=== PATIENT | male | born 1970 | race Caucasian/White ===

== ENCOUNTER 2018-12-31 16:10 | Inpatient (IN) | payer OTHER ==
[~2018-12-31] VITALS: Ht 182.9 cm; Wt 106.3 kg
[~2018-12-31 16:10] MED LIST: HYDR1TAB94 PO; LISI20 PO; Novolog100 UNIT/2; Valtrex1000 MG PO
[2018-12-31] MEDS ORDERED: **INCOMPLETE MED REC (17:26)
[2018-12-31] MEDS ORDERED: CAVERJECT XX (17:37)
[2018-12-31] MEDS ORDERED: AMLO10 PO (17:38)
[2018-12-31] MEDS ORDERED: CELE200 PO (17:39)
[2018-12-31] MEDS ORDERED: ATOR40TA PO (17:39)
[2018-12-31] MEDS ORDERED: CLON.1 PO (17:40)
[2018-12-31] MEDS ORDERED: CHLO25B PO (17:40)
[2018-12-31] MEDS ORDERED: INSUGL100V SC (17:41)
[2018-12-31] MEDS ORDERED: METF500C PO (17:42)
[2018-12-31] MEDS ORDERED: Omeprazole20 M1 PO (17:42)
[2018-12-31] MEDS ORDERED: TRAZ50 PO (17:43)
[2018-12-31] MEDS ORDERED: GENTEAL TEARS 015 ML BOTHEYES (17:44)
--- NOTE | 2018-12-31 18:30 | NUR ---
PT ORIENTED TO ROOM; CALL LIGHT WITHIN REACH; BED LOW AND IN LOCKED POSITION. AMBULATORY WITH STEADY GAIT. ACCOMPANIED BY FAMILY.
--- NOTE | 2019-01-01 05:06 | NUR ---
01/01/19 0500 O2 APPLIED HIS O2 SATS WERE 84-88% ON ROOM AIR AFTER PAIN MED GIVEN. O2 AT 2LPM VIA N/C. O2 SATS = 93% ON O2. STATES HIS PAIN IS COMTROLLED AND DENIES ANY NAUSEA. SLIGHT FEVER THIS AM. NO EMESIS. SLEPT ON AND OFF THIS SHIFT.
[2019-01-01 05:20] LABS: BASOPHILS ABSOLUTE AUTO 0.05 K/mm3 (0.00-0.23); BASOPHILS PERCENT AUTO 0 % (0-2); EOSINOPHILS ABSOLUTE AUTO 0.06 K/mm3 (0.00-0.68); EOSINOPHILS PERCENT AUTO 0 % (0-6); Hemoglobin 12.4 g/dL (13.5-17.5); IMMATURE GRAN ABSOLUTE AUTO 0.12 K/mm3 (0.00-0.10); IMMATURE GRAN PERCENT AUTO 1 % (0-1); LYMPHOCYTES ABSOLUTE AUTO 1.55 K/mm3 (0.84-5.20); LYMPHOCYTES PERCENT AUTO 8 % (21-46); MONOCYTES ABSOLUTE AUTO 1.27 K/mm3 (0.16-1.47); MONOCYTES PERCENT AUTO 7 % (4-13); Mean Corpuscular HGB 29.2 pg (26.0-34.0); Mean Corpuscular HGB Conc 33.5 g/dL (31.5-36.5); Mean Corpuscular Volume 87 fL (80-100); Mean Platelet Volume 9.9 fL (9.1-12.4); NEUTROPHILS ABSOLUTE AUTO 16.34 K/mm3 (1.96-9.15); NEUTROPHILS PERCENT AUTO 84 % (41-73); Platelet Count 249 K/mm3 (150-400); RDW Coefficient Variation 12.9 % (11.7-14.2); RDW Standard Deviation 40.7 fL (35.1-46.3); Red Blood Cell Count 4.24 M/mm3 (4.30-5.90); White Blood Cell Count 19.39 K/mm3 (4.00-11.30)
[2019-01-01 06:01] LABS: Albumin, Blood 2.9 g/dL (3.4-5.0); Albumin/Globulin Ratio 0.7 (0.8-1.8); Bun/Creatinine Ratio 12.7 (12.0-20.0); Calcium, Blood 8.1 mg/dL (8.5-10.1); Creatinine, Blood 1.58 mg/dL (0.60-1.20); Globulin, Blood 4.4 g/dL (2.2-4.0); Magnesium, Blood 1.3 mg/dL (1.6-2.4); Potassium, Blood 2.9 mmol/L (3.5-5.5); Total Protein, Blood 7.3 g/dL (6.4-8.2)
--- NOTE | 2019-01-01 12:30 | NUR ---
History, Chart, Medications and Allergies reviewed before start of procedure. Lungs clear T/O to Auscultation. Patient confirms NPO status and agrees with scheduled surgery.
[2019-01-01 13:27] LABS: Bun/Creatinine Ratio 13.6 (12.0-20.0); Calcium, Blood 8.2 mg/dL (8.5-10.1); Creatinine, Blood 1.4 mg/dL (0.60-1.20); Potassium, Blood 3.2 mmol/L (3.5-5.5)
--- NOTE | 2019-01-01 16:02 | NUR ---
RECEIVED PT FROM OR AWAKE SLIGHTLY DROWSY C/O PAIN TO RUQ AND INCISION SITES. FAMILY AT BEDSIDE AND ATTENTIVE; VSS; TEMP 99.2. ANSWERING QUESTIONS APPROPRIATELY AND TAKING SIPS OF SPRITE. POST OP VITALS IN PROGRESS.
--- NOTE | 2019-01-01 18:33 | NUR ---
SHIFT SUMMARY S/P LAP/CLARISSA TODAY; 4 INCISION SITE WITH STERI STRIPS IN PLACE. MEDICATED FOR PAIN AND NAUSEA. FEBRILE ON RETURN FROM OR. TOLERATING CLEAR LIQUID DIET WELL-MAY ADVANCE. FAMILY AT BEDSIDE, PLEASANT. URINATING WELL.A AND OX3 STANDBY ASSIST DUE TO ANESTHESIA AND LINES. POSSIBLE DC TOMORROW.
--- NOTE | 2019-01-02 04:08 | NUR ---
SHIFT SUMMARY THE PATIENT PRESENTED THIS SHIFT WITH VIALS WNL, A&O X4 AND LUNGS THAT WRE CLEAR. THE PATIENT COMPLAINED OF ABDOMIN PAIN FROM HIS SURGERY AND WAS GIVEN MEDICATIONS PER ORDERS. THE PATIENT'S TEMPERATURE DOUGLAS TO 102.1 AT 0240 AND A CALL WAS PLACED TO DOCTOR DRUMMOND FOR TYLENOL. THE PATIENT WAS RECHECKED AT 0335 AND HIS TEMPERATURE WAS BACK DOWN TO 99.0. THE PATIENT ALSO COMPLAINED OF NAUSEA AND RECEIVED ZOFRAN (4MG). THE PATIENT IS UP TO HIS CHAIR AT THIS TIME, WILL CONTINUE TO MONITOR.
[2019-01-02 04:37] LABS: BASOPHILS ABSOLUTE AUTO 0.04 K/mm3 (0.00-0.23); BASOPHILS PERCENT AUTO 0 % (0-2); EOSINOPHILS ABSOLUTE AUTO 0.19 K/mm3 (0.00-0.68); EOSINOPHILS PERCENT AUTO 1 % (0-6); Hematocrit 33.5 % (37.0-53.0); Hemoglobin 11.2 g/dL (13.5-17.5); IMMATURE GRAN ABSOLUTE AUTO 0.08 K/mm3 (0.00-0.10); IMMATURE GRAN PERCENT AUTO 1 % (0-1); LYMPHOCYTES ABSOLUTE AUTO 1.21 K/mm3 (0.84-5.20); LYMPHOCYTES PERCENT AUTO 8 % (21-46); MONOCYTES ABSOLUTE AUTO 0.92 K/mm3 (0.16-1.47); MONOCYTES PERCENT AUTO 6 % (4-13); Mean Corpuscular HGB 29.9 pg (26.0-34.0); Mean Corpuscular HGB Conc 33.4 g/dL (31.5-36.5); Mean Corpuscular Volume 90 fL (80-100); Mean Platelet Volume 9.6 fL (9.1-12.4); NEUTROPHILS ABSOLUTE AUTO 13.06 K/mm3 (1.96-9.15); NEUTROPHILS PERCENT AUTO 84 % (41-73); Platelet Count 225 K/mm3 (150-400); RDW Coefficient Variation 12.9 % (11.7-14.2); RDW Standard Deviation 42.3 fL (35.1-46.3); Red Blood Cell Count 3.74 M/mm3 (4.30-5.90)
[2019-01-02 04:57] LABS: Albumin, Blood 2.6 g/dL (3.4-5.0); Albumin/Globulin Ratio 0.6 (0.8-1.8); Bun/Creatinine Ratio 13.9 (12.0-20.0); Calcium, Blood 7.8 mg/dL (8.5-10.1); Creatinine, Blood 1.44 mg/dL (0.60-1.20); Globulin, Blood 4.6 g/dL (2.2-4.0); Magnesium, Blood 1.6 mg/dL (1.6-2.4); Potassium, Blood 3.1 mmol/L (3.5-5.5); Total Protein, Blood 7.2 g/dL (6.4-8.2)
--- NOTE | 2019-01-02 11:09 | NUR ---
Spiritual care visit conducted. Patient was lying in bed and alert when I entered the room. I introduced myself and patient welcomed me in. Patient told me about his recent health history, including his surgery and stated that he has no spiritual needs at this time. I provided companionship, reinforced helpful attitudes and practices, explored patient's belief system, encouraged self care and provided prayer. Patient responded well and showed signs of an elevated mood.
--- NOTE | 2019-01-02 11:17 | NUR ---
Advance directive education attempted. I had already been in the room for a spiritual care visit and asked patient about the status of his advance directive. Patient stated that he has an advance directive on file at the [facility] and was not interested in further discussion on the issue.
--- NOTE | 2019-01-02 17:29 | NUR ---
SUMMARY PT RESTING IN BED WATCHING TV, PT REMAINS ON OXYGEN, ATTEMPTED TO WEAN PT OFF, PT DESATS TO THE MID TO LOW 80'S, PT HAS BEEN UP WALKING IN THE HALLS BRIEFLY WITH FAMILY, HAD TO GO BACK ON O2, PT USING INCENTIVE SPIROMETER AT THE BEDSIDE, PT HAS BEEN MED FOR PAIN AND NAUSEA PER EMAR, VSS, NO ACUTE CHANGES, WILL CONT TO MONITOR
--- NOTE | 2019-01-03 03:42 | NUR ---
SHIFT SUMMARY NO ACUTE CHANGES OVERNIGHT. O2 IN PLACE. SATS IN THE 90'S. PT UP AND INDEPENDENT IN THE ROOM. PT CONTINUES TO REPORT PAIN IN HIS ABD. MEDICATED WITH NORCO, WHICH PROVIDES RELIEF. PT DENIES HAVING A BM, BUT REPORTS THAT HE IS PASSING GAS. IV ABX PER ORDERS. ASSESSMENT UNCHANGED. WILL CONTINUE TO MONITOR AND REPORT AND REPORT TO ONCOMING RN.
[2019-01-03 05:36] LABS: BASOPHILS ABSOLUTE AUTO 0.05 K/mm3 (0.00-0.23); BASOPHILS PERCENT AUTO 0 % (0-2); EOSINOPHILS ABSOLUTE AUTO 0.75 K/mm3 (0.00-0.68); EOSINOPHILS PERCENT AUTO 6 % (0-6); Hematocrit 35.3 % (37.0-53.0); Hemoglobin 11.5 g/dL (13.5-17.5); IMMATURE GRAN ABSOLUTE AUTO 0.05 K/mm3 (0.00-0.10); IMMATURE GRAN PERCENT AUTO 0 % (0-1); LYMPHOCYTES PERCENT AUTO 13 % (21-46); MONOCYTES ABSOLUTE AUTO 0.91 K/mm3 (0.16-1.47); MONOCYTES PERCENT AUTO 7 % (4-13); Mean Corpuscular HGB 29.6 pg (26.0-34.0); Mean Corpuscular HGB Conc 32.6 g/dL (31.5-36.5); Mean Corpuscular Volume 91 fL (80-100); Mean Platelet Volume 10.3 fL (9.1-12.4); NEUTROPHILS ABSOLUTE AUTO 10.17 K/mm3 (1.96-9.15); NEUTROPHILS PERCENT AUTO 75 % (41-73); Platelet Count 256 K/mm3 (150-400); RDW Coefficient Variation 13.2 % (11.7-14.2); RDW Standard Deviation 43.9 fL (35.1-46.3); Red Blood Cell Count 3.88 M/mm3 (4.30-5.90); White Blood Cell Count 13.63 K/mm3 (4.00-11.30)
[2019-01-03 06:19] LABS: Albumin, Blood 2.6 g/dL (3.4-5.0); Albumin/Globulin Ratio 0.5 (0.8-1.8); Bilirubin, Total 1.8 mg/dL (0.1-1.0); Calcium, Blood 8.1 mg/dL (8.5-10.1); Creatinine, Blood 1.38 mg/dL (0.60-1.20); Globulin, Blood 5.1 g/dL (2.2-4.0); Potassium, Blood 3.1 mmol/L (3.5-5.5); Total Protein, Blood 7.7 g/dL (6.4-8.2)
[2019-01-03] MEDS ORDERED: Amoxicillin875 MG PO (12:12)
[2019-01-03] MEDS ORDERED: HYDR1TAB94 PO (12:13)
--- NOTE | 2019-01-03 12:29 | NUR ---
01/03/19 1229 Josselyn Underwood VERIFICATIONS: EDIT CHART.
--- NOTE | 2019-01-03 12:49 | NUR ---
SUMMARY PT DISCHARGED TO HOME, PT VERBALIZED UNDERSTANDING OF DISCHARGE INSTRUCTIONS REGARDING FOLLOW UP AND MEDICATIONS, PT HAS BEEN INDEPENDENT IN THE ROOM, CURRENTLY AWAITING HIS RIDE
--- NOTE | 2019-01-03 12:51 | NUR ---
PT TAKEN OUT SAFELY VIA WHEELCHAIR
== END 2019-01-03 12:54 | disposition home or self-care (01) | DRG 419 ==
LOC: ER 16:10 → MEDS 17:05
PROVIDERS: Anesthesiology; Surgery; ADMIT Internal Medicine
PROC: BF03YZZ Plain Radiography of Gallbladder and Bile Ducts using Other Contrast (ICD-10-PCS; 2019-01-01)
PROC: 0FT44ZZ Resection of Gallbladder, Percutaneous Endoscopic Approach (ICD-10-PCS; principal; 2019-01-01 12:15)
DX: K80.00 Calculus of gallbladder with acute cholecystitis without obstruction (principal); K81.0 Acute cholecystitis; E11.22 Type 2 diabetes mellitus with diabetic chronic kidney disease; N18.9 Chronic kidney disease, unspecified; Z79.4 Long term (current) use of insulin; I12.9 Hypertensive chronic kidney disease with stage 1 through stage 4 chronic kidney disease, or unspecified chronic kidney disease; E78.5 Hyperlipidemia, unspecified; E11.51 Type 2 diabetes mellitus with diabetic peripheral angiopathy without gangrene; E87.6 Hypokalemia; E83.42 Hypomagnesemia; Z88.5 Allergy status to narcotic agent; Z88.8 Allergy status to other drugs, medicaments and biological substances; Z79.84 Long term (current) use of oral hypoglycemic drugs; Z79.899 Other long term (current) drug therapy
CPT/HCPCS: 36415; 74300; 80048; 80053; 82947; 83735; 85025; 88304; 93005; 93010; 94762; 96374; 99285-25; C1729; J0330; J1170; J1650; J1885; J2250; J2405; J2543; J2710; J2765; J3010; J3475; J3480; J7030; J7050; J7120

== ENCOUNTER 2020-06-28 12:43 | Inpatient (IN) | payer OTHER ==
[~2020-06-28] VITALS: Ht 182.9 cm; Wt 104.4 kg
[~2020-06-28 12:43] MED LIST changes: +**INCOMPLETE MED REC; +AMLO10 PO; +ATOR40TA PO; +Amoxicillin875 MG PO; +BASAGLAR K100 UNIT/1 SC; +CAVERJECT XX; +CELE200 PO; +CHLO25B PO; +CLON.1 PO; +GENTEAL TEARS 015 ML BOTHEYES; +METF500 PO; +Omeprazole20 M1 PO; +TRAZ50 PO
[2020-06-28 13:10] LABS: BASOPHILS ABSOLUTE AUTO 0.07 K/mm3 (0.00-0.23); BASOPHILS PERCENT AUTO 1 % (0-2); EOSINOPHILS ABSOLUTE AUTO 0.16 K/mm3 (0.00-0.68); EOSINOPHILS PERCENT AUTO 1 % (0-6); Hematocrit 47.5 % (37.0-53.0); Hemoglobin 16.3 g/dL (13.5-17.5); IMMATURE GRAN ABSOLUTE AUTO 0.04 K/mm3 (0.00-0.10); IMMATURE GRAN PERCENT AUTO 0 % (0-1); LYMPHOCYTES ABSOLUTE AUTO 2.24 K/mm3 (0.84-5.20); LYMPHOCYTES PERCENT AUTO 18 % (21-46); MONOCYTES ABSOLUTE AUTO 0.65 K/mm3 (0.16-1.47); MONOCYTES PERCENT AUTO 5 % (4-13); Mean Corpuscular HGB 30.4 pg (26.0-34.0); Mean Corpuscular HGB Conc 34.3 g/dL (31.5-36.5); Mean Corpuscular Volume 89 fL (80-100); Mean Platelet Volume 10.6 fL (9.1-12.4); NEUTROPHILS ABSOLUTE AUTO 9.09 K/mm3 (1.96-9.15); NEUTROPHILS PERCENT AUTO 74 % (41-73); Platelet Count 256 K/mm3 (150-400); RDW Coefficient Variation 12.7 % (11.7-14.2); RDW Standard Deviation 41.5 fL (35.1-46.3); Red Blood Cell Count 5.36 M/mm3 (4.30-5.90); White Blood Cell Count 12.25 K/mm3 (4.00-11.30)
[2020-06-28 13:46] LABS: International Normalized Ratio 0.97; Prothrombin Time Results 10.4 Sec (9.7-11.5)
[2020-06-28 13:56] LABS: Albumin, Blood 3.7 g/dL (3.4-5.0); Albumin/Globulin Ratio 0.7 (0.8-1.8); Bilirubin, Total 0.7 mg/dL (0.1-1.0); Bun/Creatinine Ratio 11.4 (12.0-20.0); Calcium, Blood 9.9 mg/dL (8.5-10.1); Creatinine, Blood 2.2 mg/dL (0.60-1.20); Globulin, Blood 5.1 g/dL (2.2-4.0); Potassium, Blood 3.4 mmol/L (3.5-5.5); Total Protein, Blood 8.8 g/dL (6.4-8.2)
[2020-06-28] MEDS ORDERED: ATEN25 PO (14:01)
[2020-06-28 19:54] LABS: Source, Urine Clean Catch
[2020-06-28 20:04] LABS: Appearance, Urine Clear (Clear); Bilirubin, Urine Neg (Neg); Blood, Urine 4+ (Neg); Color, Urine Yellow (P-Yellow); Glucose Qualitative, Urine 4+ (Neg); Ketones, Urine Neg (Neg); Leukocyte Esterase, Urine Neg (Neg); Nitrite, Urine Neg (Neg); Protein, Urine 3+ (Neg); Specific Gravity, Urine 1.015 (1.003-1.022); Urobilinogen, Urine NORM (Normal)
[2020-06-28 20:15] LABS: White Blood Cells, Urine Not Seen /hpf (0-5)
[2020-06-28 20:16] LABS: Bacteria Few /hpf; Squamous Epithelial Cells Rare /hpf (Few)
[2020-06-28 20:36] LABS: U Amphetamine Screen Not Detected; U Barbituate Screen Not Detected; U Benzodiazapine Screen Not Detected; U Buprenorphine Screen Not Detected; U Cannabinoids Screen Not Detected; U Cocaine Screen Not Detected; U Methadone Screen Not Detected; U Methamphetamine Screen Not Detected; U Opiates Screen Not Detected; U Oxycodone Screen Not Detected; U Phencyclidine Screen Not Detected; U Propoxyphene Screen Not Detected
[2020-06-29 05:31] LABS: BASOPHILS ABSOLUTE AUTO 0.07 K/mm3 (0.00-0.23); BASOPHILS PERCENT AUTO 1 % (0-2); EOSINOPHILS ABSOLUTE AUTO 0.24 K/mm3 (0.00-0.68); EOSINOPHILS PERCENT AUTO 2 % (0-6); Hematocrit 42.4 % (37.0-53.0); Hemoglobin 14.4 g/dL (13.5-17.5); IMMATURE GRAN ABSOLUTE AUTO 0.03 K/mm3 (0.00-0.10); IMMATURE GRAN PERCENT AUTO 0 % (0-1); LYMPHOCYTES PERCENT AUTO 26 % (21-46); MONOCYTES ABSOLUTE AUTO 0.66 K/mm3 (0.16-1.47); MONOCYTES PERCENT AUTO 7 % (4-13); Mean Corpuscular HGB 30.2 pg (26.0-34.0); Mean Corpuscular Volume 89 fL (80-100); Mean Platelet Volume 10.1 fL (9.1-12.4); NEUTROPHILS ABSOLUTE AUTO 6.44 K/mm3 (1.96-9.15); NEUTROPHILS PERCENT AUTO 64 % (41-73); Platelet Count 211 K/mm3 (150-400); RDW Coefficient Variation 12.6 % (11.7-14.2); RDW Standard Deviation 41.3 fL (35.1-46.3); Red Blood Cell Count 4.77 M/mm3 (4.30-5.90); White Blood Cell Count 10.04 K/mm3 (4.00-11.30)
[2020-06-29 05:49] LABS: Albumin, Blood 2.8 g/dL (3.4-5.0); Albumin/Globulin Ratio 0.7 (0.8-1.8); Bilirubin, Total 0.8 mg/dL (0.1-1.0); Bun/Creatinine Ratio 12.3 (12.0-20.0); Calcium, Blood 8.4 mg/dL (8.5-10.1); Creatinine, Blood 2.03 mg/dL (0.60-1.20); Globulin, Blood 4.2 g/dL (2.2-4.0); Potassium, Blood 2.9 mmol/L (3.5-5.5)
[2020-07-01 04:23] LABS: Albumin, Blood 2.7 g/dL (3.4-5.0); Anion Gap 1 mmol/L (6-16); Blood Urea Nitrogen 26 mg/dL (8-24); Bun/Creatinine Ratio 16.4 (12.0-20.0); CO2, Blood 34 mmol/L (21-32); Calcium, Blood 8.8 mg/dL (8.5-10.1); Chloride, Blood 106 mmol/L (98-108); Creatinine, Blood 1.59 mg/dL (0.60-1.20); Glomerular Filtration Rate 49 (60-); Glucose, Blood 114 mg/dL (70-99); Phosphorus, Blood 3.2 mg/dL (2.5-4.9); Potassium, Blood 3.5 mmol/L (3.5-5.5); Sodium, Blood 141 mmol/L (136-145)
[2020-07-01] MEDS ORDERED: ASPI81CH PO (16:51)
[2020-07-01] MEDS ORDERED: ATOR20 PO (16:51)
[2020-07-01] MEDS ORDERED: HYDR10 PO (16:52)
[2020-07-01] MEDS ORDERED: HUMALOG KW100 UNIT/1 SC (16:53)
== END 2020-07-01 18:48 | disposition home or self-care (01) | DRG 682 ==
LOC: ER 12:43 → PCU 15:13 → ICUE 15:13 → ICUW 15:13 → ICUE 16:40 → PCU 06-29 15:49
PROVIDERS: Emergency Medicine; Internal Medicine; Nurse Practitioner Acute Care; ADMIT Internal Medicine
DX: I13.10 Hypertensive heart and chronic kidney disease without heart failure, with stage 1 through stage 4 chronic kidney disease, or unspecified chronic kidney disease (principal); I21.A1 Myocardial infarction type 2; I16.1 Hypertensive emergency; N17.9 Acute kidney failure, unspecified; R65.10 Systemic inflammatory response syndrome (SIRS) of non-infectious origin without acute organ dysfunction; E87.1 Hypo-osmolality and hyponatremia; N18.3 Chronic kidney disease, stage 3 (moderate); E87.6 Hypokalemia; E11.65 Type 2 diabetes mellitus with hyperglycemia; F43.10 Post-traumatic stress disorder, unspecified; E78.5 Hyperlipidemia, unspecified; E86.0 Dehydration; E11.51 Type 2 diabetes mellitus with diabetic peripheral angiopathy without gangrene; E11.22 Type 2 diabetes mellitus with diabetic chronic kidney disease; R56.9 Unspecified convulsions; Z91.14 Patient's other noncompliance with medication regimen; Z79.4 Long term (current) use of insulin
CPT/HCPCS: 36415; 70450; 71045; 78452; 80053; 80069; 81001; 82010; 82947; 83036; 83735; 84443; 84484; 85025; 85610; 85730; 87040; 93005; 93010; 93017; 93306; 96365; 96375; 96376; 99285-25; A9270; A9270-GY; A9500; J0706; J2405; J2785; J3480; J7030; J7050

== ENCOUNTER 2021-05-29 10:53 | Inpatient (IN) | payer OTHER ==
[~2021-05-29] VITALS: Ht 182.9 cm; Wt 111.0 kg
[~2021-05-29 10:53] MED LIST changes: +ASPI81CH PO; +ATEN50 PO; +ATOR20 PO; +HUMALOG KW100 UNIT/1 SC; +HYDR10 PO
[2021-05-29 11:35] LABS: BASOPHILS ABSOLUTE AUTO 0.09 K/mm3 (0.00-0.23); BASOPHILS PERCENT AUTO 1 % (0-2); EOSINOPHILS ABSOLUTE AUTO 0.28 K/mm3 (0.00-0.68); EOSINOPHILS PERCENT AUTO 4 % (0-6); Hematocrit 45.3 % (37.0-53.0); Hemoglobin 15.1 g/dL (13.5-17.5); IMMATURE GRAN ABSOLUTE AUTO 0.03 K/mm3 (0.00-0.10); IMMATURE GRAN PERCENT AUTO 0 % (0-1); LYMPHOCYTES ABSOLUTE AUTO 1.26 K/mm3 (0.84-5.20); LYMPHOCYTES PERCENT AUTO 16 % (21-46); MONOCYTES ABSOLUTE AUTO 0.44 K/mm3 (0.16-1.47); MONOCYTES PERCENT AUTO 6 % (4-13); Mean Corpuscular HGB Conc 33.3 g/dL (31.5-36.5); Mean Corpuscular Volume 90 fL (80-100); Mean Platelet Volume 10.2 fL (9.1-12.4); NEUTROPHILS ABSOLUTE AUTO 5.76 K/mm3 (1.96-9.15); NEUTROPHILS PERCENT AUTO 73 % (41-73); Platelet Count 212 K/mm3 (150-400); RDW Coefficient Variation 13.7 % (11.7-14.2); RDW Standard Deviation 45.1 fL (35.1-46.3); Red Blood Cell Count 5.04 M/mm3 (4.30-5.90); White Blood Cell Count 7.86 K/mm3 (4.00-11.30)
[2021-05-29 12:02] LABS: Albumin, Blood 3.2 g/dL (3.4-5.0); Albumin/Globulin Ratio 0.7 (0.8-1.8); Bilirubin, Total 0.8 mg/dL (0.1-1.0); Calcium, Blood 8.8 mg/dL (8.5-10.1); Creatinine, Blood 1.58 mg/dL (0.60-1.20); Globulin, Blood 4.8 g/dL (2.2-4.0); Potassium, Blood 3.7 mmol/L (3.5-5.5)
[2021-05-29 12:05] LABS: Troponin I 2.48 ng/mL (0.000-0.040)
[2021-05-29 12:51] LABS: International Normalized Ratio 0.98; Prothrombin Time Results 10.6 Sec (9.7-11.5)
--- NOTE | 2021-05-29 15:00 | NUR ---
PT ARRIVES TO ICU 16 FROM ER VIA GURNEY. PT STANDS AND PIVOTS SELF TO BED. A/O X4. DENIES CP OR PRESSURE. DENIES DIZZINESS, STATES SOB HAS IMPROVED SINCE ARRIVAL TO HOSPITAL. ON HEPARIN GTT. RESTARTED NICARDIPINE GTT AT 2.5MG/HR. HAS NITRO PASTE ON CW. NO SIGN OF DISTRESS.
[2021-05-29] MEDS ORDERED: METF500 PO (15:58)
[2021-05-29] MEDS ORDERED: LOSA50 PO (15:58)
--- NOTE | 2021-05-29 18:42 | NUR ---
PT RESTING IN BED. ON HEPARIN GTT AND NICARDIPINE GTT. BP IMPROVED SINCE NICARDIPINE STARTED. DR. HATCH CAME TO SEE PT AND WILL BE TAKING HIM TO THE JOURNALISM INTERN IN AM. PT IS TO BE NPO AFTER MIDNIGHT. DENIES CP OR PRESSURE. NO SIGN OF DISTRESS. CALL LIGHT IN REACH.
--- NOTE | 2021-05-29 19:30 | NUR ---
ASSESSMENT/ASSUMED CARE PT SITTING UP IN BED WATCHING TV. PT DENIES CHEST PAIN AT THIS TIME. C/O HEADACHE, WILL MED WITH TYLENOL. LUNGS CLEAR ON ROOMAIR. DENIES COUGH AT THIS TIME. C/O SLIGHT SOB, BUT IMPROVED FROM ADMIT. HEART RATE REGULAR, SINUS RHYTHM. BP ELEVATED PT ON NICARDIPINE GTT AT 2.5 MG/HR FOR HTN. BT+ ABD SOFT AND NONTENDER. DENIES N/V. IV TO RIGHT AC WITH HEPARIN AT 13 UNITS/KG/HR, SITE CLEAR. IV TO LEFT AC WITH NICARDIPINE AT 2.5 MG/HR, SITE CLEAR. PT REPORTS NUMBNESS AND TINGELING TO BILAT LOWER EXT AND LEFT HAND. STATES,"BEEN LIKE THAT FOR YEARS". PT MOVING AND TURNING IN BED.
--- NOTE | 2021-05-29 20:32 | NUR ---
PT SITTING UP IN BED EATING SANDWICH. BLOOD GLUCOSE 189. LABS DRAWN
--- NOTE | 2021-05-29 21:09 | NUR ---
HEPARIN HEPARIN BOLUS 3900 UNITS GIVEN IV AND INCREASED GTT TO 15 UNITS/KG/HR. PT RESTING QUIETLY IN BED WATCHING TV.
--- NOTE | 2021-05-29 22:16 | NUR ---
O2 PT TRYING TO SLEEP. SPO2 DROPPING DOWN TO 87% THAN BACK UP TO 92-94%. PT DENIES SLEEP APNEA. PLACED ON 2 LITER O2 VIA NC TO KEEP SPO2 GREATER THAN 90%.
--- NOTE | 2021-05-30 00:01 | NUR ---
REASSESSMENT PT SLEEPING. TURNING SELF IN BED. VSS. DENIES PAIN. O2 AT 2 LITERS VIA NC. PT NPO FOR PCI IN AM. NTG PASTE REMOVED.
[2021-05-30 03:38] LABS: BASOPHILS ABSOLUTE AUTO 0.06 K/mm3 (0.00-0.23); BASOPHILS PERCENT AUTO 1 % (0-2); EOSINOPHILS ABSOLUTE AUTO 0.47 K/mm3 (0.00-0.68); EOSINOPHILS PERCENT AUTO 6 % (0-6); Hematocrit 39.8 % (37.0-53.0); Hemoglobin 13.4 g/dL (13.5-17.5); IMMATURE GRAN ABSOLUTE AUTO 0.02 K/mm3 (0.00-0.10); IMMATURE GRAN PERCENT AUTO 0 % (0-1); LYMPHOCYTES ABSOLUTE AUTO 1.79 K/mm3 (0.84-5.20); LYMPHOCYTES PERCENT AUTO 21 % (21-46); MONOCYTES ABSOLUTE AUTO 0.56 K/mm3 (0.16-1.47); MONOCYTES PERCENT AUTO 7 % (4-13); Mean Corpuscular HGB 30.1 pg (26.0-34.0); Mean Corpuscular HGB Conc 33.7 g/dL (31.5-36.5); Mean Corpuscular Volume 89 fL (80-100); Mean Platelet Volume 10.3 fL (9.1-12.4); NEUTROPHILS ABSOLUTE AUTO 5.52 K/mm3 (1.96-9.15); NEUTROPHILS PERCENT AUTO 66 % (41-73); Platelet Count 190 K/mm3 (150-400); RDW Coefficient Variation 13.8 % (11.7-14.2); RDW Standard Deviation 44.9 fL (35.1-46.3); Red Blood Cell Count 4.45 M/mm3 (4.30-5.90); White Blood Cell Count 8.42 K/mm3 (4.00-11.30)
[2021-05-30 03:54] LABS: Calcium, Blood 8.6 mg/dL (8.5-10.1); Creatinine, Blood 1.69 mg/dL (0.60-1.20); Potassium, Blood 3.1 mmol/L (3.5-5.5)
--- NOTE | 2021-05-30 05:44 | NUR ---
SHIFT SUMMARY PT RESTING QUIETLY. TURNING SELF IN BED. NPO SINCE MIDNIGHT. DENIES PAIN OR DISCOMFORT. PLACED ON O2 AT 2 LITERS DURING THE NIGHT DUE TO DECREASED SPO2 WHILE SLEEPING. HEPARIN INCREASED DURING THE NIGHT AND TWO BOLUS GIVEN. HEPARIN CURRENTLY AT 17 UNITS/KG/HR. NEXT PTT AT 1200. NICARDIPINE CONT AT 2.5 MG/HR. PT TO JOB ANALYSIS MANAGER THIS AM WITH DR HATCH FOR PCI. VSS. REPORT TO ON COMING NURSE
--- NOTE | 2021-05-30 08:00 | NUR ---
ASSESSMENT- PT AWAKE, ALERT, COOPERATIVE. STATES NO SOB OR PAIN AT REST. STATES STILL FEELS SOME SOB WITH DEEP BREATHING AND SOME PRESSURE ON CHEST WITH DEEP BREATHING. VSS. SKIN W/D. LUNGS CLEAR, SR WITH INVERTED T WAVES. NO N/V. NPO FOR NUMEROLOGIST THIS AM. BLOO SUGAR 165-REFUSED COVERAGE D/T NPO STATUS. PIV X 2 INTACT. IV MEDS ROTATED. CARDENE GTT AT 2.5 MG/HR FOR BP CONTROL, HEPARIN GTT AT 17 UNITS/KG/HR.
--- NOTE | 2021-05-30 09:14 | NUR ---
Echocardiogram complete.
--- NOTE | 2021-05-30 09:47 | NUR ---
DR. HATCH HERE-PLANS FOR CATH THIS AM. UPDATED WITH PT STATUS. PT DENIES COMPLAINTS. ABLE TO STAND AT BEDSIDE FOR LINEN CHANGE WITHOUT COMPLAINTS. RX WITH BLOOD PRESSURE MEDS, CARDENE OFF
--- NOTE | 2021-05-30 11:45 | NUR ---
REPORT TO TAIL BOARD MAN STAFF, PT TO TAIL BOARD MAN IN BED, DENIES ANY PAIN.
--- NOTE | 2021-05-30 19:38 | NUR ---
SHIFT SUMMARY: PT CONTINUES A&OX4, RESP EVEN AND UNLABORED, MAINTAINING O2 SATS >95% ON O2 VIA NC AT 2 L/MIN, SR ON MONITOR, RT RADIAL SITE WNL WITH TR BAND REMOVED AND TRANSPARENT DRESSING IN PLACE. PT DENIES SOB, DENIES CHEST PAIN. REPORT GIVEN TO PANCHO SPICER TO ASSUME CARE OF PT.
[2021-05-31 04:44] LABS: Bun/Creatinine Ratio 13.5 (12.0-20.0); Calcium, Blood 8.4 mg/dL (8.5-10.1); Creatinine, Blood 1.7 mg/dL (0.60-1.20); Potassium, Blood 3.6 mmol/L (3.5-5.5)
--- NOTE | 2021-05-31 05:46 | NUR ---
SPECK DYER SUMMARY PT HAS DENIED ANY CP OR PRESSURE THIS SHIFT. PT'S BP REMAINED ELEVATED THIS SHIFT SO ORDER FOR PRN HYDRALAZINE WAS OBTAINED AND GIVEN FOR SBP OF 179 WHICH BROUGHT SBP DOWN TO 156. O2 SATS > 92% ON 2L VIA NC. OPSITE TO R RADIAL SITE IS C/D/I W NO S/S OF SWELLING OR HEMATOMA. WILL REPORT TO ONCOMING RN.
[2021-05-31] MEDS ORDERED: ATOR40TA PO (10:18)
[2021-05-31] MEDS ORDERED: LOSA50 PO (10:20)
[2021-05-31] MEDS ORDERED: AMLO5 PO (10:22)
[2021-05-31] MEDS ORDERED: CLOP75 PO (10:22)
[2021-05-31] MEDS ORDERED: Aspir 8181 MG PO (10:22)
[2021-05-31] MEDS ORDERED: HYDROCHLOROTH12.5 MG PO (10:23)
[2021-05-31] MEDS ORDERED: HUMULIN R100 UNIT/2 SC (10:24)
--- NOTE | 2021-05-31 12:00 | NUR ---
PT DISCHARGE: NO ACUTE CHANGES T/OUT THE NOC. PT CONTINUES A&OX4, RESP EVEN AND UNLABORED, MAINTAINING O2 SATS >92% ON RA, HRR. RT RADIAL SITE HEALING WNL. MILD HTN CONTINUES, DR VUONG AWARE WITH HOME MEDICATION CHANGES. PT HAS BEEN PROVIDED WITH DC PAPERWORK AND INSTRUCTIONS. PT V/U AND DENIES FURTHER QUESTIONS. PT DC'D AND ESCORTED TO AWAITING CAR.
[2021-06-01] MEDS ORDERED: ELIQUIS5 M2 PO (11:45)
[2021-06-01] MEDS ORDERED: ASCO500 PO (11:46)
[2021-06-01] MEDS ORDERED: METF500C PO (12:35)
[2021-06-01] MEDS ORDERED: ALOGLIPTIN12.5 M1 PO (12:35)
== END 2021-05-31 12:00 | disposition home or self-care (01) | DRG 247 ==
LOC: ER 10:53 → ICUW 13:28 → PCU 05-30 14:03
PROVIDERS: Emergency Medicine; ADMIT Internal Medicine
PROC: 027034Z Dilation of Coronary Artery, One Artery with Drug-eluting Intraluminal Device, Percutaneous Approach (ICD-10-PCS; principal; 2021-05-30)
PROC: B2111ZZ Fluoroscopy of Multiple Coronary Arteries using Low Osmolar Contrast (ICD-10-PCS; 2021-05-30)
DX: I21.4 Non-ST elevation (NSTEMI) myocardial infarction (principal); I16.1 Hypertensive emergency; I25.5 Ischemic cardiomyopathy; E11.69 Type 2 diabetes mellitus with other specified complication; E78.5 Hyperlipidemia, unspecified; E11.22 Type 2 diabetes mellitus with diabetic chronic kidney disease; N18.32 Chronic kidney disease, stage 3b; K21.9 Gastro-esophageal reflux disease without esophagitis; Z98.890 Other specified postprocedural states; Z88.5 Allergy status to narcotic agent; Z88.8 Allergy status to other drugs, medicaments and biological substances; Z90.49 Acquired absence of other specified parts of digestive tract; Z79.899 Other long term (current) drug therapy; Z79.82 Long term (current) use of aspirin; Z79.4 Long term (current) use of insulin; E11.51 Type 2 diabetes mellitus with diabetic peripheral angiopathy without gangrene
CPT/HCPCS: 36415; 71045; 80048; 80053; 82947; 83036; 83880; 84484; 85025; 85347; 85610; 85730; 93005; 93010; 93306; 93458; 93571; 94660; 96374; 96375; 99152; 99153; 99285-25; A9270; C1725; C1769; C1874; C1887; C1894; C9600; J0360; J1644; J1815; J2250; J3010; J3246; J7030; J7050; Q9967

== ENCOUNTER 2021-06-01 08:59 | Observation (INO) | payer OTHER ==
[~2021-06-01] VITALS: Ht 182.9 cm; Wt 112.0 kg
[~2021-06-01 08:59] MED LIST changes: +AMLO5 PO; +Aspir 8181 MG PO; +CLOP75 PO; +HUMULIN R100 UNIT/2 SC; +HYDROCHLOROTH12.5 MG PO; +LOSA50 PO
[2021-06-01 09:30] LABS: BASOPHILS ABSOLUTE AUTO 0.06 K/mm3 (0.00-0.23); BASOPHILS PERCENT AUTO 1 % (0-2); EOSINOPHILS ABSOLUTE AUTO 0.54 K/mm3 (0.00-0.68); EOSINOPHILS PERCENT AUTO 6 % (0-6); Hematocrit 38.1 % (37.0-53.0); Hemoglobin 12.6 g/dL (13.5-17.5); IMMATURE GRAN ABSOLUTE AUTO 0.05 K/mm3 (0.00-0.10); IMMATURE GRAN PERCENT AUTO 1 % (0-1); LYMPHOCYTES ABSOLUTE AUTO 1.11 K/mm3 (0.84-5.20); LYMPHOCYTES PERCENT AUTO 12 % (21-46); MONOCYTES ABSOLUTE AUTO 0.54 K/mm3 (0.16-1.47); MONOCYTES PERCENT AUTO 6 % (4-13); Mean Corpuscular HGB 29.5 pg (26.0-34.0); Mean Corpuscular HGB Conc 33.1 g/dL (31.5-36.5); Mean Corpuscular Volume 89 fL (80-100); NEUTROPHILS ABSOLUTE AUTO 7.34 K/mm3 (1.96-9.15); NEUTROPHILS PERCENT AUTO 76 % (41-73); Platelet Count 212 K/mm3 (150-400); RDW Coefficient Variation 13.6 % (11.7-14.2); RDW Standard Deviation 44.4 fL (35.1-46.3); Red Blood Cell Count 4.27 M/mm3 (4.30-5.90); White Blood Cell Count 9.64 K/mm3 (4.00-11.30)
[2021-06-01 09:58] LABS: Albumin, Blood 2.8 g/dL (3.4-5.0); Albumin/Globulin Ratio 0.7 (0.8-1.8); Bilirubin, Total 1.2 mg/dL (0.1-1.0); Bun/Creatinine Ratio 11.8 (12.0-20.0); Calcium, Blood 8.7 mg/dL (8.5-10.1); Creatinine, Blood 1.61 mg/dL (0.60-1.20); Potassium, Blood 3.6 mmol/L (3.5-5.5); Total Protein, Blood 6.8 g/dL (6.4-8.2)
[2021-06-01 10:19] LABS: Troponin I 2.09 ng/mL (0.000-0.040)
[2021-06-01] MEDS ORDERED: ELIQUIS5 M2 PO (11:45)
[2021-06-01] MEDS ORDERED: ASCO500 PO (11:46)
[2021-06-01 12:25] LABS: Creatine Kinase MB 10.3 ng/mL (0.0-3.6)
[2021-06-01 12:26] LABS: Creatine Kinase MB Index 5.1 (0.0-4.0)
[2021-06-01] MEDS ORDERED: METF500C PO (12:35)
[2021-06-01] MEDS ORDERED: ALOGLIPTIN12.5 M1 PO (12:35)
--- NOTE | 2021-06-01 15:26 | NUR ---
Report received from ED at this time. Pt coming to PCU 5.
--- NOTE | 2021-06-01 16:12 | NUR ---
The pt arrived to PCU 5. Verified tele box with Caitlin Ny, and was told that pt is in sinus rhythm, 60 bpm. Blood pressure remains elevated, but pt denies any chest pain or dyspnea at time, both during transfer from the ED stretcher to the bed in PCU and while at rest during our conversation. No supplemental oxygen requirement at this time. Lung sounds are auscultated, no wheezing noted, but inspiratory crackles are heard on the posterior chest, in the lower bases. Pt states that he was discharged yesterday, and didn't take his medications other than the ones he was given while in the hospital, since he was going to the [facility] to get his medications filled this morning.
--- NOTE | 2021-06-01 17:55 | NUR ---
Requested vasotec from pharmacy; not loaded into pyxis. One hour later, still no vasotec from pharmacy through tube system. called pharmacy and was told that it was loaded into pyxis. medication was given to the pt at this time and time adjustment made for cozaar and atenolol to start now since the pt did not take those medications either yesterday evening nor this morning. He was given norvasc late this morning in the ED.
--- NOTE | 2021-06-01 18:29 | NUR ---
The pt continues to deny chest pressure and dyspnea. STates that when he takes a deep breath it makes him cough. Monitoring blood pressure after PRN vasotec was given, as well as two of his evening medications to reduce blood pressure and work load on the heart.
[2021-06-02 04:15] LABS: BASOPHILS ABSOLUTE AUTO 0.08 K/mm3 (0.00-0.23); BASOPHILS PERCENT AUTO 1 % (0-2); EOSINOPHILS ABSOLUTE AUTO 0.58 K/mm3 (0.00-0.68); EOSINOPHILS PERCENT AUTO 7 % (0-6); Hematocrit 38.8 % (37.0-53.0); Hemoglobin 12.9 g/dL (13.5-17.5); IMMATURE GRAN ABSOLUTE AUTO 0.05 K/mm3 (0.00-0.10); IMMATURE GRAN PERCENT AUTO 1 % (0-1); LYMPHOCYTES ABSOLUTE AUTO 1.34 K/mm3 (0.84-5.20); LYMPHOCYTES PERCENT AUTO 15 % (21-46); MONOCYTES ABSOLUTE AUTO 0.56 K/mm3 (0.16-1.47); MONOCYTES PERCENT AUTO 6 % (4-13); Mean Corpuscular HGB 30.2 pg (26.0-34.0); Mean Corpuscular HGB Conc 33.2 g/dL (31.5-36.5); Mean Corpuscular Volume 91 fL (80-100); Mean Platelet Volume 10.4 fL (9.1-12.4); NEUTROPHILS ABSOLUTE AUTO 6.21 K/mm3 (1.96-9.15); NEUTROPHILS PERCENT AUTO 70 % (41-73); Platelet Count 204 K/mm3 (150-400); RDW Coefficient Variation 13.6 % (11.7-14.2); RDW Standard Deviation 45.3 fL (35.1-46.3); Red Blood Cell Count 4.27 M/mm3 (4.30-5.90); White Blood Cell Count 8.82 K/mm3 (4.00-11.30)
[2021-06-02 05:00] LABS: Anion Gap 4 mmol/L (6-16); Blood Urea Nitrogen 25 mg/dL (8-24); Bun/Creatinine Ratio 13.2 (12.0-20.0); CHOL/HDL RATIO 4.8; CO2, Blood 32 mmol/L (21-32); Calcium, Blood 8.8 mg/dL (8.5-10.1); Chloride, Blood 104 mmol/L (98-108); Cholesterol 152 mg/dL (50-200); Creatinine, Blood 1.89 mg/dL (0.60-1.20); Glomerular Filtration Rate 38 (60-); Glucose, Blood 177 mg/dL (70-99); HDL Cholesterol 32 mg/dL (>39); LDL/HDL RATIO 2.6; Low Density Lipoprotein Chol 82 mg/dL (0-110); Potassium, Blood 3.4 mmol/L (3.5-5.5); Sodium, Blood 140 mmol/L (136-145); Triglycerides 192 mg/dL (30-160); Very Low Density Lipoprot Chol 38 mg/dL (6-32)
--- NOTE | 2021-06-02 05:19 | NUR ---
SHIFT SUMMARY ASSUMED CARE OF PT AT 1900. PT IS A/OX4 AND INDEPENDENT IN ROOM. HEART SOUNDS REGULAR, TELE SHOWS SINUS. LUNG SOUNDS DIMINISHED. PT BP WAS RANGING BETWEEN 170 SYSTOLIC TO 155. PT WAS GIVEN ALTERNATING LABETALOL AND VASOTEC SOME RESULTS. PT C/O BECOMING SOB WHEN HE RELAXES, SO RT PUT PT ON 1.5L NC, SATURATIONS ABOVE 95%. CALL LIGHT IN REACH, BED IN LOWEST POSTION.
--- NOTE | 2021-06-02 10:58 | NUR ---
Overnight, pt received 2 doses of antihypertensive medications PRN for systolic greater than 160 mmHg. This morning blood pressure again very elevated. Morning meds given, and pressure was rechecked but without any difference noted. IV Vasotec given at this time for persistent hypertension. Waiting for attending hospitalist to round to discuss. Dr. Ken states pt this morning that pt is probably ready to discharge today.
--- NOTE | 2021-06-02 11:42 | NUR ---
blood pressure noted lowering. PT states he slept well last night, but is feeling very sleepy today.
--- NOTE | 2021-06-02 18:47 | NUR ---
Variable blood pressure today, new medications added/doses adjusted by attending trimmer press clippings and hospitalist. Pt has been without any chest pain, but states that a few times today he would have brief (seconds long) periods when he found it hard to breathe, which resolved very quickly. Otherwise he denies having any other difficulties.
[2021-06-03 03:58] LABS: BASOPHILS ABSOLUTE AUTO 0.07 K/mm3 (0.00-0.23); BASOPHILS PERCENT AUTO 1 % (0-2); EOSINOPHILS PERCENT AUTO 9 % (0-6); Hematocrit 38.3 % (37.0-53.0); Hemoglobin 12.8 g/dL (13.5-17.5); IMMATURE GRAN ABSOLUTE AUTO 0.04 K/mm3 (0.00-0.10); IMMATURE GRAN PERCENT AUTO 1 % (0-1); LYMPHOCYTES ABSOLUTE AUTO 1.41 K/mm3 (0.84-5.20); LYMPHOCYTES PERCENT AUTO 18 % (21-46); MONOCYTES PERCENT AUTO 8 % (4-13); Mean Corpuscular HGB 30.1 pg (26.0-34.0); Mean Corpuscular HGB Conc 33.4 g/dL (31.5-36.5); Mean Corpuscular Volume 90 fL (80-100); Mean Platelet Volume 10.1 fL (9.1-12.4); NEUTROPHILS ABSOLUTE AUTO 5.04 K/mm3 (1.96-9.15); NEUTROPHILS PERCENT AUTO 64 % (41-73); Platelet Count 193 K/mm3 (150-400); RDW Coefficient Variation 13.6 % (11.7-14.2); RDW Standard Deviation 45.1 fL (35.1-46.3); Red Blood Cell Count 4.25 M/mm3 (4.30-5.90); White Blood Cell Count 7.86 K/mm3 (4.00-11.30)
[2021-06-03 04:16] LABS: Bun/Creatinine Ratio 13.5 (12.0-20.0); Calcium, Blood 8.7 mg/dL (8.5-10.1); Creatinine, Blood 1.85 mg/dL (0.60-1.20); Potassium, Blood 3.4 mmol/L (3.5-5.5)
--- NOTE | 2021-06-03 04:44 | NUR ---
SHIFT SUMMARY ASSUMED CARE OF PT AT 1900. PT IS A/OX4. HEART SOUNDS REGULAR, LUNG SOUNDS DIMINISHED. PT STATES THAT HE FELT A LITTLE SOB AND HIS CHEST HURT WHEN HE TRIED TO GO TO SLEEP. PT REQUIRED 1.5L WHILE SLEEPING. PT WAS INDEPENDENT TO THE BATHROOM. BLOOD PRESSURES REMAIN STABLE. CALL LIGHT IN REACH, BED IN LOWEST POSTION.
--- NOTE | 2021-06-03 06:14 | NUR ---
DOCTOR QUACH SPOKE WITH DR DALEY THIS AM. SHE SAID THAT PT IS DOING WELL ON HIS NEW MEDS AND IF HE CONTINUES TO HAVE GOOD BLOOD PRESSURES THIS AM. DOCTOR WAS NOT CONCERNED ABOUT PT BRADYING DOWN TO 46. INFORMED DOCTOR ABOUT PT MENTIONING THAT HE HAD A SLEEP STUDY A YEAR AGO AND WILL NEED TO SEE THAT OUT PT IF HE WANTS TO USE OXYGEN AT NIGHT.
--- NOTE | 2021-06-03 07:15 | NUR ---
INITIAL ASSESSMENT: PT IS RESTING WITH EYES CLOSED, PT EASILY AWAKENS WITH ASSESSMENT. PT IS ALERT AND ORIENTED. PT DENIES PAIN, PT REPORTS CHRONIC N/T IN HIS BLE AND LEFT HAND FROM NEUROPATHY. HRR. LS CTA, BIOX LOW 90S ON RA. BT+. PPP, TRACE EDEMA IN BLE. AM MEDS GIVEN AT THIS TIME. PT DENIES OTHER NEEDS. WILL CONTINUE TO MONITOR.
--- NOTE | 2021-06-03 10:59 | NUR ---
Pt resting in bed and is A&OX4. Pt is a and this RN thanked him for his service. Listened as Pt discusses events leading up to this hospital stay. Pt reports not being and has moved in with his elderly parents to assist with caring for them. Engaged in gentle education regarding disease process including trajectory of disease. Discussed the importance of routine conversations with specialist and PCP regarding disease process. Discussed the importance of compliance. Pt appears to have a good understanding. Pt expresses appreciation of visit and reports no concerns at this time. Spoke with Primary RN Kailee and discussed case. Pt to D/C home today. Palliative Care will remain available.
[2021-06-03] MEDS ORDERED: DOXA4 PO (11:07)
[2021-06-03] MEDS ORDERED: HUMALOG KW100 UNIT/1 SC (11:08)
[2021-06-03] MEDS ORDERED: SPIR50 PO (11:08)
[2021-06-03] MEDS ORDERED: FURO80 PO (11:09)
--- NOTE | 2021-06-03 11:35 | NUR ---
PT VERBALIZED UNDERSTANDING OF DC INSTRUCTIONS. IV'S DC'D CATH INTACT. [facility] PT AMBULATED OUT TO [facility] CAR.
== END 2021-06-03 11:39 | disposition home or self-care (01) ==
LOC: ER 08:59 → ERHOLD 09:00 → PCU 09:00
PROVIDERS: Emergency Medicine; Student in an Organized Health Care Education/Training Program; ADMIT Internal Medicine
DX: I16.0 Hypertensive urgency (principal); I13.0 Hypertensive heart and chronic kidney disease with heart failure and stage 1 through stage 4 chronic kidney disease, or unspecified chronic kidney disease; I50.31 Acute diastolic (congestive) heart failure; E11.22 Type 2 diabetes mellitus with diabetic chronic kidney disease; N18.30 Chronic kidney disease, stage 3 unspecified; E11.65 Type 2 diabetes mellitus with hyperglycemia; I21.A1 Myocardial infarction type 2; I23.8 Other current complications following acute myocardial infarction; I21.4 Non-ST elevation (NSTEMI) myocardial infarction; I25.10 Atherosclerotic heart disease of native coronary artery without angina pectoris; I27.20 Pulmonary hypertension, unspecified; E78.5 Hyperlipidemia, unspecified; E11.51 Type 2 diabetes mellitus with diabetic peripheral angiopathy without gangrene; E87.6 Hypokalemia; E66.9 Obesity, unspecified; F41.9 Anxiety disorder, unspecified; Z95.5 Presence of coronary angioplasty implant and graft; Z87.891 Personal history of nicotine dependence; Z68.32 Body mass index [BMI] 32.0-32.9, adult; Z79.4 Long term (current) use of insulin; Z88.5 Allergy status to narcotic agent; Z88.8 Allergy status to other drugs, medicaments and biological substances; Z79.02 Long term (current) use of antithrombotics/antiplatelets; Z79.82 Long term (current) use of aspirin
CPT/HCPCS: 36415; 71045; 80048; 80053; 80061; 82550; 82553; 82947; 83880; 84484; 85025; 93005; 93010; 93308; 93321; 94762; 96365; 96366; 96375; 99285-25; A9270; J1650; J1940

== ENCOUNTER 2021-08-18 09:47 | Inpatient (IN) | payer OTHER ==
[~2021-08-18] VITALS: Ht 182.9 cm; Wt 106.2 kg
[~2021-08-18 09:47] MED LIST changes: +ALOGLIPTIN12.5 M1 PO; +ASCO500 PO; +DOXA4 PO; +ELIQUIS5 M2 PO; +FURO80 PO; +METF500C PO; +SPIR50 PO
[2021-08-18] MEDS ORDERED: ASPIR 8181 M1 PO (09:55)
[2021-08-18] MEDS ORDERED: ATOR40TA PO (09:56)
[2021-08-18] MEDS ORDERED: HYDRA25 PO (09:56)
[2021-08-18] MEDS ORDERED: BASAGLAR K100 UNIT/3 SC (09:56)
[2021-08-18] MEDS ORDERED: CLOP75 PO (09:56)
[2021-08-18 10:42] LABS: BASOPHILS PERCENT AUTO 1 % (0-2); EOSINOPHILS ABSOLUTE AUTO 0.41 K/mm3 (0.00-0.68); EOSINOPHILS PERCENT AUTO 5 % (0-6); Hematocrit 41.2 % (37.0-53.0); IMMATURE GRAN ABSOLUTE AUTO 0.03 K/mm3 (0.00-0.10); IMMATURE GRAN PERCENT AUTO 0 % (0-1); LYMPHOCYTES ABSOLUTE AUTO 1.85 K/mm3 (0.84-5.20); LYMPHOCYTES PERCENT AUTO 24 % (21-46); MONOCYTES ABSOLUTE AUTO 0.63 K/mm3 (0.16-1.47); MONOCYTES PERCENT AUTO 8 % (4-13); Mean Corpuscular HGB 29.9 pg (26.0-34.0); Mean Corpuscular Volume 88 fL (80-100); Mean Platelet Volume 10.2 fL (9.1-12.4); NEUTROPHILS ABSOLUTE AUTO 4.61 K/mm3 (1.96-9.15); NEUTROPHILS PERCENT AUTO 60 % (41-73); Platelet Count 234 K/mm3 (150-400); RDW Coefficient Variation 13.1 % (11.7-14.2); RDW Standard Deviation 41.6 fL (35.1-46.3); Red Blood Cell Count 4.69 M/mm3 (4.30-5.90); White Blood Cell Count 7.63 K/mm3 (4.00-11.30)
[2021-08-18 11:27] LABS: Albumin, Blood 2.9 g/dL (3.4-5.0); Albumin/Globulin Ratio 0.6 (0.8-1.8); Bilirubin, Total 0.8 mg/dL (0.1-1.0); Bun/Creatinine Ratio 13.1 (12.0-20.0); Calcium, Blood 9.3 mg/dL (8.5-10.1); Creatinine, Blood 1.98 mg/dL (0.60-1.20); Globulin, Blood 4.8 g/dL (2.2-4.0); Potassium, Blood 4.1 mmol/L (3.5-5.5); Total Protein, Blood 7.7 g/dL (6.4-8.2)
[2021-08-18 11:44] LABS: Troponin I 1.32 ng/mL (0.000-0.040)
[2021-08-18 14:38] LABS: International Normalized Ratio 1.05
[2021-08-18 15:29] LABS: SARS-Cov-2 (COVID-19) PCR, MMC NEGATIVE (NEGATIVE)
--- NOTE | 2021-08-18 15:45 | NUR ---
Patient arrived to PCU 13 via gurney and was able to transfer to the bed independently. He is alert and oriented. Denies chest pain at this time. Patient states earlier today he had a "squeezing" sensation in his chest. He had checked his blood pressure and it was high. He states this pain was similar to when he had his NSTEMI in May. Blood Pressure still high. This RN called MD to clarify med orders. Coreg given for hypertension. Talked with patients mother on the phone to verify medications, med list updated and MD notified. Patient has been oriented to room and call light.
[2021-08-18] MEDS ORDERED: Isosorbide Mono30 MG PO (16:35)
[2021-08-18] MEDS ORDERED: METO25ER PO (16:36)
[2021-08-18] MEDS ORDERED: MELA3 PO (16:37)
[2021-08-18 18:06] LABS: U Amphetamine Screen Not Detected; U Barbituate Screen Not Detected; U Benzodiazapine Screen Not Detected; U Buprenorphine Screen Not Detected; U Cannabinoids Screen Not Detected; U Cocaine Screen Not Detected; U Methadone Screen Not Detected; U Methamphetamine Screen Not Detected; U Opiates Screen Not Detected; U Oxycodone Screen Not Detected; U Phencyclidine Screen Not Detected; U Propoxyphene Screen Not Detected
--- NOTE | 2021-08-18 18:44 | NUR ---
SHIFT SUMMARY PT A&O X4, BROUGHT TO PCU FROM ER @ 1545. PT DENYING CP WHILE IN PCU. BP ELEVATED, TRENDING DOWN POST MEDICATION PER EMAR. MONITOR SHOWS SR, HR 60's. SPO2 > 92% ON RA. PT REPORTS NEUROPATHY W/ BLE NUMBNESS & R HAND FINGERS TINGLY. NS GTT INFUSING PER ORDERS. HEPARIN GTT INFUSING PER ORDERS.
[2021-08-19 04:14] LABS: BASOPHILS ABSOLUTE AUTO 0.07 K/mm3 (0.00-0.23); BASOPHILS PERCENT AUTO 1 % (0-2); EOSINOPHILS ABSOLUTE AUTO 0.34 K/mm3 (0.00-0.68); EOSINOPHILS PERCENT AUTO 5 % (0-6); Hematocrit 38.3 % (37.0-53.0); Hemoglobin 13.3 g/dL (13.5-17.5); IMMATURE GRAN ABSOLUTE AUTO 0.04 K/mm3 (0.00-0.10); IMMATURE GRAN PERCENT AUTO 1 % (0-1); LYMPHOCYTES ABSOLUTE AUTO 2.04 K/mm3 (0.84-5.20); LYMPHOCYTES PERCENT AUTO 27 % (21-46); MONOCYTES ABSOLUTE AUTO 0.51 K/mm3 (0.16-1.47); MONOCYTES PERCENT AUTO 7 % (4-13); Mean Corpuscular HGB 30.4 pg (26.0-34.0); Mean Corpuscular HGB Conc 34.7 g/dL (31.5-36.5); Mean Corpuscular Volume 87 fL (80-100); Mean Platelet Volume 9.8 fL (9.1-12.4); NEUTROPHILS ABSOLUTE AUTO 4.44 K/mm3 (1.96-9.15); NEUTROPHILS PERCENT AUTO 60 % (41-73); Platelet Count 219 K/mm3 (150-400); RDW Coefficient Variation 13.2 % (11.7-14.2); Red Blood Cell Count 4.38 M/mm3 (4.30-5.90); White Blood Cell Count 7.44 K/mm3 (4.00-11.30)
[2021-08-19 04:32] LABS: Albumin, Blood 2.7 g/dL (3.4-5.0); Albumin/Globulin Ratio 0.6 (0.8-1.8); Bilirubin, Total 0.6 mg/dL (0.1-1.0); Bun/Creatinine Ratio 14.9 (12.0-20.0); Calcium, Blood 8.7 mg/dL (8.5-10.1); Creatinine, Blood 1.95 mg/dL (0.60-1.20); Globulin, Blood 4.2 g/dL (2.2-4.0); Magnesium, Blood 2.3 mg/dL (1.6-2.4); Potassium, Blood 3.3 mmol/L (3.5-5.5); Total Protein, Blood 6.9 g/dL (6.4-8.2)
--- NOTE | 2021-08-19 04:33 | NUR ---
PATIENT IS A/OX4. LS CLEAR T/O. MAINTAINING OVER 92% ON RA. SR-SB 50-60'S. BP REMAINS TO BE HIGH DESPITE PRN HYDRALAZINE. TROPONIN TRENDING DOWN. NO ACUTE CHANGES. WILL REPORT TO ONCOMING DAYSEDWINFT RN.
--- NOTE | 2021-08-19 15:17 | NUR ---
TRANSFER TO MEDICAL PT A&O X4, INDEPENDENT IN . VSS. SPO2 > 92% ON RA. BP ELEVATED, MEDICATED PER EMAR. PT DENYING CP. HEPARIN GTT DC'd BY . PT MEDICAL W/ TELE STATUS. REPORT CALLED TO ACCEPTING PANCHO PT TRANSFERRED TO 352 BY PCT IN WHEELCHAIR W/ BELONGINGS @ [id number].
--- NOTE | 2021-08-19 16:59 | NUR ---
SUMMARY PT TRANSFERRED UP FROM PCU, PT ALERT AND ORIENTED, INDEPENDENT IN THE ROOM, PT SITTING UP IN BED WATCHING TV, ORIENTED PT TO THE ROOM AND CALL SYSTEM, VSS, WILL CONT TO MONITOR
[2021-08-20 05:49] LABS: Bun/Creatinine Ratio 14.6 (12.0-20.0); Calcium, Blood 9.2 mg/dL (8.5-10.1); Creatinine, Blood 2.46 mg/dL (0.60-1.20); Potassium, Blood 4.1 mmol/L (3.5-5.5)
--- NOTE | 2021-08-20 16:41 | NUR ---
SHIFT SUMMARY PATIENT IS ALERT AND ORIENTED X4. PATIENT IS INDEPENDENT IN ROOM. TELE WAS DISCONTINUED EARLY THIS SHIFT. PATIENT WAS GIVEN HYDRALAZINE FOR HIGH BP ONCE THIS SHIFT PER EMAR. NO ACUTE CHANGES THIS SHIFT. POSSIBLE DISCHARGE TOMORROW. PATIENT HAS BEEN WATCHING TELEVISION AND RESTING MOST OF THIS SHIFT. WILL CONTINUE TO MONITOR UNTIL SHIFT CHANGE.
--- NOTE | 2021-08-21 03:51 | NUR ---
Patient had no complaints of chest pain/pressure or SOB overnight. Urine sample sent to lab per orders. awaiting results. 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 Again, hoping for discharge home today
[2021-08-21 05:28] LABS: Bun/Creatinine Ratio 17.1 (12.0-20.0); Calcium, Blood 9.4 mg/dL (8.5-10.1); Creatinine, Blood 2.17 mg/dL (0.60-1.20); Potassium, Blood 3.9 mmol/L (3.5-5.5)
[2021-08-21] MEDS ORDERED: HUMALOG KW100 UNIT/1 SC (11:41)
[2021-08-21] MEDS ORDERED: HYDRA25 PO (11:41)
--- NOTE | 2021-08-21 14:45 | NUR ---
DISCHARGE NOTE PATIENT ALERT AND ORIENTED, INDEPENDENT IN THE ROOM THIS SHIFT. PATIENT DISCHARGED TO HOME. PATIENT EDUCATED ABOUT DISCHARGE AND MEDICATIONS. PATIENT STATES UNDERSTANDING OF INSTRUCTIONS. PATIENT DRESSED INDEPENDENTLY FOR DISCHARGE. PATIENT DENIES CP THIS SHIFT. PATIENT TO REFUSED WHEELCHAIR. PATIENT AMBULATED OFF THE UNIT WITH [facility] FOR ESCORT.
[2021-08-24 16:11] LABS: METANEPH/CREAT RATIO 0.2 (0.0-1.0)
== END 2021-08-21 13:10 | disposition home or self-care (01) | DRG 281 ==
LOC: ER 09:47 → MEDS 12:52 → PCU 12:52 → MEDS 08-19 15:25
PROVIDERS: Emergency Medicine; Internal Medicine; Nurse Practitioner Acute Care; ADMIT Internal Medicine
DX: I21.4 Non-ST elevation (NSTEMI) myocardial infarction (principal); I13.0 Hypertensive heart and chronic kidney disease with heart failure and stage 1 through stage 4 chronic kidney disease, or unspecified chronic kidney disease; I50.32 Chronic diastolic (congestive) heart failure; I16.1 Hypertensive emergency; N17.9 Acute kidney failure, unspecified; I16.0 Hypertensive urgency; E78.5 Hyperlipidemia, unspecified; E11.22 Type 2 diabetes mellitus with diabetic chronic kidney disease; F43.10 Post-traumatic stress disorder, unspecified; I27.20 Pulmonary hypertension, unspecified; K21.9 Gastro-esophageal reflux disease without esophagitis; I70.1 Atherosclerosis of renal artery; Z20.822 Contact with and (suspected) exposure to COVID-19; E11.51 Type 2 diabetes mellitus with diabetic peripheral angiopathy without gangrene; E66.9 Obesity, unspecified; N18.30 Chronic kidney disease, stage 3 unspecified; Z90.89 Acquired absence of other organs; Z90.49 Acquired absence of other specified parts of digestive tract; Z98.890 Other specified postprocedural states; I25.2 Old myocardial infarction; Z95.5 Presence of coronary angioplasty implant and graft; Z88.5 Allergy status to narcotic agent; Z88.8 Allergy status to other drugs, medicaments and biological substances; Z87.891 Personal history of nicotine dependence; Z91.14 Patient's other noncompliance with medication regimen; Z79.4 Long term (current) use of insulin; Z79.02 Long term (current) use of antithrombotics/antiplatelets; Z79.899 Other long term (current) drug therapy; Z79.82 Long term (current) use of aspirin; Z68.32 Body mass index [BMI] 32.0-32.9, adult
CPT/HCPCS: 36415; 71045; 80048; 80053; 82570; 82947; 83735; 83835; 84484; 85025; 85610; 85730; 86316; 93005; 93010; 93975; 99285-25; A9270; J0360; J1644; J1815; J7030; U0004

== ENCOUNTER 2021-09-28 11:49 | Emergency (ER) | payer OTHER ==
[~2021-09-28] VITALS: Ht 182.9 cm; Wt 113.8 kg
[~2021-09-28 11:49] MED LIST changes: +ASPIR 8181 M1 PO; +BASAGLAR K100 UNIT/3 SC; +HYDRA25 PO; +Isosorbide Mono30 MG PO; +MELA3 PO; +METO25ER PO
[2021-09-28 12:37] LABS: BASOPHILS ABSOLUTE AUTO 0.11 K/mm3 (0.00-0.23); BASOPHILS PERCENT AUTO 1 % (0-2); EOSINOPHILS ABSOLUTE AUTO 0.52 K/mm3 (0.00-0.68); EOSINOPHILS PERCENT AUTO 7 % (0-6); Hematocrit 36.9 % (37.0-53.0); Hemoglobin 12.2 g/dL (13.5-17.5); IMMATURE GRAN ABSOLUTE AUTO 0.04 K/mm3 (0.00-0.10); IMMATURE GRAN PERCENT AUTO 1 % (0-1); LYMPHOCYTES ABSOLUTE AUTO 1.68 K/mm3 (0.84-5.20); LYMPHOCYTES PERCENT AUTO 21 % (21-46); MONOCYTES ABSOLUTE AUTO 0.61 K/mm3 (0.16-1.47); MONOCYTES PERCENT AUTO 8 % (4-13); Mean Corpuscular HGB 30.1 pg (26.0-34.0); Mean Corpuscular HGB Conc 33.1 g/dL (31.5-36.5); Mean Corpuscular Volume 91 fL (80-100); Mean Platelet Volume 10.3 fL (9.1-12.4); NEUTROPHILS ABSOLUTE AUTO 5.07 K/mm3 (1.96-9.15); NEUTROPHILS PERCENT AUTO 63 % (41-73); Platelet Count 246 K/mm3 (150-400); RDW Coefficient Variation 13.2 % (11.7-14.2); RDW Standard Deviation 44.9 fL (35.1-46.3); Red Blood Cell Count 4.05 M/mm3 (4.30-5.90); White Blood Cell Count 8.03 K/mm3 (4.00-11.30)
[2021-09-28 13:19] LABS: Albumin, Blood 2.8 g/dL (3.4-5.0); Albumin/Globulin Ratio 0.6 (0.8-1.8); Bilirubin, Total 0.7 mg/dL (0.1-1.0); Bun/Creatinine Ratio 13.7 (12.0-20.0); Calcium, Blood 8.7 mg/dL (8.5-10.1); Creatinine, Blood 1.61 mg/dL (0.60-1.20); Globulin, Blood 4.4 g/dL (2.2-4.0); Potassium, Blood 4.9 mmol/L (3.5-5.5); Total Protein, Blood 7.2 g/dL (6.4-8.2)
[2021-09-28 13:25] LABS: Troponin I 1.31 ng/mL (0.000-0.040)
[2021-09-28 14:55] LABS: International Normalized Ratio 1.01; Prothrombin Time Results 10.6 Sec (9.7-11.5)
--- NOTE | 2021-09-28 15:48 | NUR ---
Echocardiogram using 9.0ml of agitated saline contrast performed.
== END 2021-09-28 19:46 | disposition home or self-care (01) ==
LOC: ER 11:49
PROVIDERS: Emergency Medicine; Student in an Organized Health Care Education/Training Program
DX: R20.2 Paresthesia of skin (principal); R77.8 Other specified abnormalities of plasma proteins; E11.51 Type 2 diabetes mellitus with diabetic peripheral angiopathy without gangrene; I73.9 Peripheral vascular disease, unspecified; I21.4 Non-ST elevation (NSTEMI) myocardial infarction; I27.20 Pulmonary hypertension, unspecified; I13.0 Hypertensive heart and chronic kidney disease with heart failure and stage 1 through stage 4 chronic kidney disease, or unspecified chronic kidney disease; E11.22 Type 2 diabetes mellitus with diabetic chronic kidney disease; N18.30 Chronic kidney disease, stage 3 unspecified; I50.32 Chronic diastolic (congestive) heart failure; E78.5 Hyperlipidemia, unspecified; Z88.8 Allergy status to other drugs, medicaments and biological substances; Z88.5 Allergy status to narcotic agent; Z79.899 Other long term (current) drug therapy; Z79.82 Long term (current) use of aspirin; Z79.4 Long term (current) use of insulin; Z79.02 Long term (current) use of antithrombotics/antiplatelets
CPT/HCPCS: 36415; 71045; 80053; 83880; 84484; 85025; 85520; 85610; 85730; 93005; 93010; 93308; 93321; 93931; 93971; 96374; 99285-25; J0360

== ENCOUNTER 2022-01-25 12:46 | Emergency (ER) | payer OTHER ==
[~2022-01-25] VITALS: Ht 182.9 cm; Wt 109.8 kg
[2022-01-25 13:30] LABS: BASOPHILS ABSOLUTE AUTO 0.07 K/mm3 (0.00-0.23); BASOPHILS PERCENT AUTO 1 % (0-2); EOSINOPHILS PERCENT AUTO 4 % (0-6); Hematocrit 48.4 % (37.0-53.0); IMMATURE GRAN ABSOLUTE AUTO 0.04 K/mm3 (0.00-0.10); IMMATURE GRAN PERCENT AUTO 0 % (0-1); LYMPHOCYTES ABSOLUTE AUTO 1.75 K/mm3 (0.84-5.20); LYMPHOCYTES PERCENT AUTO 19 % (21-46); MONOCYTES ABSOLUTE AUTO 0.45 K/mm3 (0.16-1.47); MONOCYTES PERCENT AUTO 5 % (4-13); Mean Corpuscular HGB Conc 33.1 g/dL (31.5-36.5); Mean Corpuscular Volume 88 fL (80-100); Mean Platelet Volume 10.1 fL (9.1-12.4); NEUTROPHILS ABSOLUTE AUTO 6.34 K/mm3 (1.96-9.15); NEUTROPHILS PERCENT AUTO 70 % (41-73); Platelet Count 221 K/mm3 (150-400); RDW Coefficient Variation 13.2 % (11.7-14.2); RDW Standard Deviation 42.5 fL (35.1-46.3); Red Blood Cell Count 5.51 M/mm3 (4.30-5.90); White Blood Cell Count 9.05 K/mm3 (4.00-11.30)
[2022-01-25 13:40] LABS: Albumin, Blood 3.4 g/dL (3.4-5.0); Albumin/Globulin Ratio 0.7 (0.8-1.8); Bilirubin, Total 0.9 mg/dL (0.1-1.0); Bun/Creatinine Ratio 11.1 (12.0-20.0); Calcium, Blood 11.2 mg/dL (8.5-10.1); Creatinine, Blood 2.79 mg/dL (0.60-1.20); Globulin, Blood 4.8 g/dL (2.2-4.0); Potassium, Blood 4.2 mmol/L (3.5-5.5); Total Protein, Blood 8.2 g/dL (6.4-8.2)
[2022-01-25] MEDS ORDERED: SPIR25 PO (13:43)
[2022-01-25] MEDS ORDERED: TENORETIC 1001 EACH PO (15:59)
[2022-01-25] MEDS ORDERED: Pepcid20 MG PO (17:01)
== END 2022-01-25 17:31 | disposition home or self-care (01) ==
LOC: ER 12:46
PROVIDERS: Physician Assistant
DX: R07.9 Chest pain, unspecified (principal); E78.5 Hyperlipidemia, unspecified; I13.0 Hypertensive heart and chronic kidney disease with heart failure and stage 1 through stage 4 chronic kidney disease, or unspecified chronic kidney disease; I50.32 Chronic diastolic (congestive) heart failure; N18.30 Chronic kidney disease, stage 3 unspecified; E11.22 Type 2 diabetes mellitus with diabetic chronic kidney disease; Z88.5 Allergy status to narcotic agent; Z79.4 Long term (current) use of insulin; Z79.899 Other long term (current) drug therapy; Z87.891 Personal history of nicotine dependence
CPT/HCPCS: 36415; 71046; 80053; 83690; 83880; 84484; 85025; 93005; 93010; 96374; 99285-25